=== PATIENT | male | born 1955 | race Caucasian/White ===

== ENCOUNTER 2016-05-17 11:34 | Inpatient (IN) | payer OTHER ==
[~2016-05-17] VITALS: Ht 180.3 cm; Wt 80.3 kg
[2016-05-28] MEDS ORDERED: VIAG25TA PO (15:25)
[2016-05-28] MEDS ORDERED: NAPR220T95 PO (15:25)
[2016-05-28] MEDS ORDERED: ALPR0.5T3 PO (15:25)
[2016-05-28] MEDS ORDERED: FENT25DI T-DERMAL (15:25)
[2016-05-28] MEDS ORDERED: TRAZ100T4 PO (15:25)
[2016-06-11] MEDS ORDERED: DEXAMETHASONE SOD PHOS 20 MG/5 ML VIAL ONE (05:54)
[2016-06-11] MEDS ORDERED: ceFAZolin 2 GM PREMIX 50 ML ONE (05:54)
[2016-06-11] MEDS ORDERED: SODIUM CHLOR 0.9% 250 ML INJ 250 ML ONE (05:55)
[2016-06-11] MEDS ORDERED: VANCOMYCIN HCL 1000 MG VIAL ONE (05:55)
[2016-06-11 05:57] VITALS: BP 150/85; PULSE 79; RESP 20; TEMP 97.8; O2SAT 97
[2016-06-11] MEDS ORDERED: LACTATED RINGER'S 1000 ML INJ 1,000 ML ONE (06:04)
[2016-06-11] MEDS ORDERED: GENTAMICIN SULFATE 80 MG/2 ML VIAL ONE (06:10)
[2016-06-11] MEDS ORDERED: FAMOTIDINE 20 MG/2 ML VIAL ONE (06:35)
[2016-06-11] MEDS ORDERED: MIDAZOLAM HCL 2 MG/2 ML VIAL ONE ×2 (06:36→09:35)
[2016-06-11] MEDS: CHLORHEXIDINE GLUCONATE 4% SOLN 120 ML BTL TOP SCH (06:45)
[2016-06-11] MEDS: POVIDONE IODINE 7.5% SCRUB 118 ML BOTTLE TOP SCH (06:45)
[2016-06-11] MEDS ORDERED: EXPAREL PERI-ARTICULAR INJECTION (TOTAL VOL. 60 ML) P-ARTICULR SCH ×2 (06:45)
[2016-06-11] MEDS ORDERED: SODIUM CHLORIDE 0.9% IV SCH (06:45)
[2016-06-11] MEDS ORDERED: TRANEXAMIC PERI-ARTICULAR 3,000 MG/NS 100 ML P-ARTICULR SCH ×2 (06:45)
[2016-06-11] MEDS ORDERED: ceFAZolin 2 GM PREMIX 50 ML IV SCH (06:45)
[2016-06-11] MEDS ORDERED: DEXAMETHASONE SOD PHOS 20 MG/5 ML VIAL IV ONE (06:45)
[2016-06-11] MEDS ORDERED: TRANEXAMIC ACID IV SCH (06:45)
[2016-06-11] MEDS ORDERED: VANCOMYCIN 1000 MG/NS 250 ML (for <70 kg) IV SCH ×2 (06:45)
[2016-06-11] MEDS ORDERED: ACETAMINOPHEN 1000 MG/100 ML VIAL IV ONE (06:48)
[2016-06-11] MEDS ORDERED: ALPRAZolam 0.5 MG TAB PO PRN (07:00)
[2016-06-11] MEDS ORDERED: HYDR-3288 PO (07:03)
[2016-06-11] MEDS ORDERED: ENOX40P SQ (07:04)
[2016-06-11] MEDS ORDERED: ASPI81CH37 CHEW (07:04)
[2016-06-11] MEDS ORDERED: BISACODYL 10 MG SUPP PR PRN (07:15)
[2016-06-11] MEDS ORDERED: ONDANSETRON HCL 4 MG/2 ML VIAL IVP PRN (07:15)
[2016-06-11] MEDS ORDERED: diphenhydrAMINE HCL 50 MG/ML VIAL IV PRN (07:15)
[2016-06-11] MEDS ORDERED: MORPHINE SULFATE 4 MG/ML INJ IV PUSH PRN (07:15)
[2016-06-11] MEDS ORDERED: ZOLPIDEM TARTRATE 5 MG TAB PO PRN (07:15)
[2016-06-11] MEDS ORDERED: NALOXONE HCL 0.4 MG/ML AMP IV PRN (07:15)
[2016-06-11] MEDS ORDERED: ALUMINUM/MAGNESIUM/SIMETH 30 ML CUP PO PRN (07:15)
[2016-06-11] MEDS ORDERED: SODIUM CHLORIDE 0.9% FLUSH 5 ML FLUSH IVF PRN (07:15)
[2016-06-11] MEDS ORDERED: INSULIN HUMAN REGULAR 1,000 UNITS/10 ML VIAL SQ PRN (08:30)
[2016-06-11] MEDS ORDERED: LACTATED RINGER'S 1000 ML IV SCH (08:30)
[2016-06-11] MEDS ORDERED: SODIUM CHLORID 0.9% 500 ML IV SCH (08:30)
[2016-06-11] MEDS ORDERED: METOPROLOL TARTRATE 25 MG TAB PO PRN (08:30)
[2016-06-11] MEDS: SODIUM CHLORIDE 0.9% FLUSH 5 ML FLUSH IVF SCH ×2 (09:00→21:39)
[2016-06-11] MEDS ORDERED: fentaNYL 25 MCG/HR PATCH T-DERMAL SCH (09:00)
[2016-06-11] MEDS ORDERED: Post-op Orders (for Pharmacy) MISC XX ONE (09:30)
[2016-06-11] MEDS ORDERED: DO NOT ADM ANY ANTICOAGULANT DRUGS XX PRN (09:30)
[2016-06-11] MEDS ORDERED: *morphine SULFATE 8 MG/ML PERIprocedure ONLY ONE ×2 (09:34→09:42)
[2016-06-11] MEDS ORDERED: fentaNYL CITRATE 250 MCG/5 ML AMP ONE (09:35)
[2016-06-11] MEDS ORDERED: MORPHINE SULFATE 4 MG/ML INJ ONE (09:36)
[2016-06-11] MEDS ORDERED: *MEPERIDINE 25 MG INJ VIAL PERIprocedural Use ONLY ONE (09:39)
[2016-06-11] MEDS ORDERED: *HYDROmorphone PF 1 MG VIAL PERIprocedural Use ONLY ONE ×3 (09:49→10:17)
[2016-06-11] MEDS ORDERED: *hydrOXYzine 25 MG VIAL PERIprocedural Use ONLY IM ONE (10:03)
[2016-06-11] MEDS: SODIUM CHLOR 0.9% 1000 ML INJ 1,000 ML IV SCH ×2 (10:20→15:53)
--- NOTE | 2016-06-11 11:15 | RADRPT ---
EXAM DATE/TIME: 06/11/2016 09:49 [facility] COMPARISON: No previous studies available for comparison. INDICATIONS : Post op. MEDICAL HISTORY : None. SURGICAL HISTORY : Right hip ENCOUNTER: Initial ACUITY: 1 day PAIN SCORE: 6/10 LOCATION: Right Hip FINDINGS: Examination of the right hip was performed with AP Pelvis. Postsurgical changes are noted following r ight hip replacement. Acetabular and femoral components are well seated and satisfactorily aligned. T here is no subacute fracture. Left hip is unremarkable. CONCLUSION: Satisfactory postoperative appearance of the right hip and pelvis status post hip replacement. Vincenzo Purcell MD on June 11, 2016 at 11:12 Board Certified Radiologist. This report was verified electronically.
[2016-06-11] MEDS: ACETAMINOPHEN/HYDROcodone 325 MG/10 MG TAB PO PRN ×3 (11:24→23:29)
[2016-06-11] MEDS: MAGNESIUM HYDROXIDE SUSP 30 ML CUP PO PRN (11:25)
[2016-06-11] MEDS ORDERED: PHENYLEPH/NS 1000 MCG/10 ML SYR IV ONE (12:39)
[2016-06-11] MEDS ORDERED: LACTATED RINGER'S 1000 ML INJ 1,000 ML IV ONE (12:39)
[2016-06-11] MEDS ORDERED: NEOSTIGMINE 3 MG/3 ML SYR IV ONE (12:39)
[2016-06-11] MEDS ORDERED: ONDANSETRON HCL 4 MG/2 ML VIAL IV PUSH ONE (12:39)
[2016-06-11] MEDS ORDERED: PROPOFOL 200 MG/20 ML AMP IV ONE (12:39)
[2016-06-11 12:50] VITALS: BP 130/71; PULSE 90; RESP 16; TEMP 97.2; O2SAT 91
--- NOTE | 2016-06-11 13:44 | RADRPT ---
EXAM DATE/TIME: 06/11/2016 07:30 [facility] COMPARISON: No previous studies available for comparison. INDICATIONS : Right anterior hip. MEDICAL HISTORY : Arthritis. SURGICAL HISTORY : None. ENCOUNTER: Subsequent ACUITY: 1 day PAIN SCORE: Non-responsive. LOCATION: Right hip FINDINGS: There is a right bipolar hip prosthesis. This appears well placed. CONCLUSION: Good placement of a bipolar right hip prosthesis. Jose Elizalde MD on June 11, 2016 at 13:41 Board Certified Radiologist. This report was verified electronically.
[2016-06-11 15:54] VITALS: BP 125/68; PULSE 101; RESP 18; TEMP 97.4; O2SAT 98
[2016-06-11] MEDS: VANCOMYCIN INJ 1,000 MG in SODIUM CHLOR 0.9% 250 ML INJ 250 ML IV SCH (17:55)
[2016-06-11 19:48] VITALS: O2SAT 95
[2016-06-11 20:00] VITALS: BP 108/60; PULSE 96; RESP 16; TEMP 98.9; O2SAT 95
[2016-06-11] MEDS ORDERED: traZODone HCL 50 MG TAB PO SCH (21:00)
[2016-06-12] VITALS: BP 132/73; PULSE 94; RESP 16; TEMP 98; O2SAT 98
[2016-06-12] MEDS: SODIUM CHLOR 0.9% 1000 ML INJ 1,000 ML IV SCH ×2 (03:01→08:01)
[2016-06-12 04:00] VITALS: BP 118/69; PULSE 87; RESP 16; TEMP 97.6; O2SAT 97
[2016-06-12] MEDS: CHLORHEXIDINE GLUCONATE 4% SOLN 120 ML BTL TOP SCH (04:54)
[2016-06-12] MEDS: POVIDONE IODINE 7.5% SCRUB 118 ML BOTTLE TOP SCH (04:54)
[2016-06-12] MEDS: ACETAMINOPHEN/HYDROcodone 325 MG/10 MG TAB PO PRN ×3 (05:12→12:45)
[2016-06-12] MEDS: VANCOMYCIN INJ 1,000 MG in SODIUM CHLOR 0.9% 250 ML INJ 250 ML IV SCH (05:13)
[2016-06-12 06:24] LABS: HEMATOCRIT 34.5 % (39.0-51.0); MEAN CELL VOLUME 87.6 FL (80.0-100.0); MEAN CORPUSCULAR HEMOGLOBIN 29.4 PG (27.0-34.0); MEAN CORPUSCULAR HGB CONC 33.6 % (32.0-36.0); PLATELET COUNT 227 TH/MM3 (150-450); RED BLOOD COUNT 3.94 MIL/MM3 (4.50-5.90); RED CELL DISTRIBUTION WIDTH 13.2 % (11.6-17.2); REVIEW FLAG FINAL; WHITE BLOOD COUNT 13.1 TH/MM3 (4.0-11.0)
[2016-06-12 06:51] LABS: BICARBONATE 29.4 MEQ/L (21.0-32.0); POTASSIUM 3.9 MEQ/L (3.5-5.1)
[2016-06-12] MEDS: SODIUM CHLORIDE 0.9% FLUSH 5 ML FLUSH IVF SCH (08:00)
[2016-06-12] MEDS: MAGNESIUM HYDROXIDE SUSP 30 ML CUP PO PRN (08:00)
--- NOTE | 2016-06-12 08:10 | PD.ORT.PN ---
Subjective Post Op Day #: 1 Subjective Remarks pain tolerable. Objective Vitals Vital Signs Date Time Temp Pulse Resp B/P Pulse Ox O2 Delivery O2 Flow Rate FiO2 06/12/16 04:00 97.6 87 16 118/69 97 06/12/16 00:00 98.0 94 16 132/73 98 06/11/16 20:00 98.9 96 16 108/60 95 06/11/16 19:48 95 21 06/11/16 15:54 97.4 101 18 125/68 98 06/11/16 12:50 97.2 90 16 130/71 91 06/11/16 10:15 83 12 162/79 96 Nasal Cannula 2 06/11/16 10:00 82 12 146/88 98 Nasal Cannula 2 06/11/16 09:45 70 12 133/84 99 Nasal Cannula 4 06/11/16 09:30 67 10 113/86 94 Nasal Cannula 4 06/11/16 09:20 98.3 85 14 140/76 94 Nasal Cannula 4 I/O 06/11/16 06/11/16 06/11/16 06/12/16 06/12/16 06/12/16 07:00 15:00 23:00 07:00 15:00 23:00 Intake Total 2280 ml 240 ml 240 ml Output Total 1725 ml 350 ml 700 ml Balance 555 ml -110 ml -460 ml Intake Oral 580 ml 240 ml 240 ml IV Total 200 ml Other 1500 ml Output Urine Total 1275 ml 350 ml 700 ml Estimated Blood Loss 450 ml # Voids 0 # Bowel Movements 0 0 0 Result Diagram: 06/12/16 0539 06/12/16 0539 Objective Remarks in chair, nad incision no erythema, no drainage thigh soft neg homans nvi Assessment & Plan Ortho Post Op Day #: 1 Problem List: Assessment and Plan s/p R JESSE anterior approach wbat daily dressing changes lovenox rx in chart d/c planning home with [facility] and pt cleared for d/c today if pain under control f/up dr. vaz 2 weeks Lex Ramirez Jun 12, 2016 08:10
--- NOTE | 2016-06-12 08:12 | HHI.DCPOC ---
Discharge Care Plan Diagnosis: (1) Primary localized osteoarthrosis, pelvic region and thigh Your Health Problems Are: Difficulty with ADL Goals to Promote Your Health * To prevent worsening of your condition and complications * To maintain your health at the optimal level Directions to Meet Your Goals Take your medications as prescribed Follow your dietary instruction Follow activity as directed Keep your appointments as scheduled Take your immunizations and boosters as scheduled If your symptoms worsen call your PCP, if no PCP go to Urgent Care Center or Emergency Room Smoking is Dangerous to Your Health. Avoid second hand smoke Call the 24-hour hour crisis hotline for domestic abuse at Lex Ramirez Jun 12, 2016 08:12
[2016-06-12] MEDS ORDERED: MISC-163 (08:13)
--- NOTE | 2016-06-12 08:13 | HHI.FF ---
Face to Face Verification Diagnosis: (1) Primary localized osteoarthrosis, pelvic region and thigh Physical Therapy Gait training, Safety evaluation, Transfer training, bed to chair Hip: Total hip, Protocol: Right Right LE Weight Bearing: WB as tolerated Nursing RN: 3 days/week x 2 weeks Nursing: Lissy teaching, Dressing changes I have seen patient Lyndon Solis on 06/12/16. My clinical findings support the need for the requested home health care services because: Limited ability to care for self High risk of falls I certify that my clinical findings support that this patient is homebound because: Post-op weakness Unsteady gait/balance Lex Ramirez Jun 12, 2016 08:13
[2016-06-12] MEDS ORDERED: ENOXAPARIN SODIUM 40 MG/0.4 ML SYRINGE SQ SCH (09:00)
[2016-06-12 09:44] VITALS: BP 108/72; PULSE 97; RESP 16; TEMP 97.8; O2SAT 100
[2016-06-12 09:55] VITALS: O2SAT 96
[2016-06-12 12:00] VITALS: BP 142/80; PULSE 92; RESP 16; TEMP 98.7; O2SAT 99
[2016-06-12] MEDS ORDERED: MULTIVITAMINS/MINERALS THERAPEUTIC TAB PO SCH (21:00)
[2016-06-12] MEDS ORDERED: DOCUSATE SODIUM 100 MG CAP PO SCH (21:00)
[2016-06-13] MEDS ORDERED: fentaNYL 25 MCG/HR PATCH T-DERMAL SCH (09:00)
--- NOTE | 2016-06-13 13:14 | MP ---
cc: ADALBERTO LOPEZ DATE OF SURGERY: 06/11/2016 PREOPERATIVE DIAGNOSIS Right hip osteoarthritis. POSTOPERATIVE DIAGNOSIS Right hip osteoarthritis. PROCEDURE Right total hip arthroplasty. SURGEON Dr. Adalberto Lopez DIRECT SUPPORT STAFF Adalberto Ramirez PA-C ANESTHESIA General. ESTIMATED BLOOD LOSS 200 cc. COMPLICATIONS None. IMPLANTS USED DePuy Corail size 13 Press-Fit standard offset femoral stem, size 56 solid [place] Gription cup, size 36 mm neutral highly crosslinked liner, size 36 mm ceramic head, +5 neck. JUSTIFICATION The patient is a 61-year-old male with a history of severe end-stage osteoarthritis involving the right hip. He has severe disabling pain with standing, walking, ambulation, weightbearing activities and even severe pain at rest. It does interfere with activities of daily living. The patient has failed greater than three months of nonoperative conservative treatment to include medications, physical therapy, ambulatory assisted aids, home exercise program and activity modification. The patient is not overweight. X-rays of the right hip reveal severe end-stage osteoarthritis, [id number] joint space narrowing, subchondral sclerosis, subchondral cysts, osteophyte formation and superior subluxation. The patient was counseled as to the risks, benefits and alternatives to a total hip arthroplasty. The risks which were discussed include but are not limited to anesthesia, bleeding, infection, damage to nerves, blood vessels, pain, stiffness, fracture-dislocation, leg length discrepancies, blood clots, pulmonary embolism, and even . The patient's pain is severe. He favored the benefits over the risks and did wish to proceed with surgery. PROCEDURE IN DETAIL Written consent was obtained. The patient was identified by name, taken to the operating room and placed supine on the operating table. General anesthesia was administered as well as 2 grams of IV Ancef and 1 gram of IV vancomycin. The right and left feet were placed in the padded traction boots. The right hip right and right lower extremity were prepped and draped using isopropyl alcohol, Hibiclens solution and ChloraPrep solution. After a timeout was performed a longitudinal incision was made over the anterolateral aspect of the right hip. The fascial layer was incised and dissection was carried over the tensor fascia anastasiya beneath the rectus femoris to allow exposure of the anterior hip capsule. A capsulotomy incision was performed. An oscillating saw was used to perform a femoral neck cut. The osteoarthritic femoral head and neck component was removed. A 10 blade scalpel was used to excise the labrum. Sequential reaming began at size 49 mm and was carried to a size 56 mm. Subsequently, a solid [place] Gription cup was implanted in approximately 45 degrees of abduction and 10 degrees of anteversion. There was good purchase and fixation after insertion of the cup. A screw hole eliminator was placed followed by the neutral liner which was impacted in place and tested for stability. Attention was turned to the femur where the leg was externally rotated, extended to the ground and adducted. The capsule was released off the undersurface the greater trochanter to allow for elevation and lateralization of the femur. A box cutting osteotome was used to gain entrance into the intramedullary canal of the femur. This was followed by a canal finder and sequential broaching up to size 13. A calcar planer was used to plane the calcar. Trial head and neck combinations were evaluated and the final component was implanted. With the current components implanted the leg could achieve 70 degrees of external rotation and extension all the way down to the ground without evidence of anterior instability or impingement. Soft tissue tension felt appropriate and fluoroscopic imaging showed appropriate implantation of components. The surgical wound was thoroughly irrigated with sterile saline pulse lavage antibiotic-impregnated solution. The fascial layer was closed with #1n Vicryl suture, subcutaneous layer with 2-0 Vicryl suture. The skin was closed with Dermabond. Sterile dressings were applied. The patient tolerated the procedure well. No intraoperative complications were noted. Adalberto Ramirez, physician aquatics assistant department head certified, was present during the entire procedure to include patient positioning and the procedure itself. The medical necessity of the physician aquatics assistant department head was indicated in this case due to the complexity of the procedure. He assisted with appropriate manipulation of the leg and also traction of muscle, tendon, bone and neurovascular structures. He assisted with both preparation of bone and implantation of the prosthetic replacement. MD NATANAEL Andrews/PEGGY /8:04 AM /11:47 AM
--- NOTE | 2016-06-18 12:05 | MD ---
cc: ADALBERTO LOPEZ ADMISSION DATE: 06/11/2016 DISCHARGE DATE: 06/12/2016 ADMISSION DIAGNOSIS Severe degenerative osteoarthritis right hip. DISCHARGE DIAGNOSIS Severe degenerative osteoarthritis right hip. HISTORY OF PRESENT ILLNESS Mr. Solis is a 61-year-old male who presented to the [facility] for evaluation by Dr. Adalberto Lopez regarding his progressive right hip pain. The patient states the pain in his right hip has been bothering him for greater than 6 months for which he has been treated for this ailment. He states currently it is a severe, constant aching sensation aggravated by weightbearing activities. He notes the pain is inhibiting his activities of daily living and inhibiting his ability to exercise. He notes in the past he has tried medications, physical therapy home exercise program. The patient is not overweight as well as a steroid injection without relief of symptoms. He does have x-ray evidence of severe degenerative osteoarthritis in the right hip. While in the office the patient was counseled on his diagnosis and treatment options. The risks, benefits and indications all were discussed. The patient did elect to proceed with surgical intervention to include a right total hip arthroplasty. DATE OF SURGERY 06/11/2016. OPERATIVE PROCEDURE Right total hip arthroplasty anterior approach. POSTOP After surgery the patient was admitted to [facility] where he received appropriate medical management, pain control, DVT prophylaxis as well as physical therapy. DISCHARGE Once being discharged from the hospital, the patient is cleared to go home where he will receive home health care and home physical therapy. CONDITION ON DISCHARGE He is in stable condition. DISPOSITION The patient may weight-bear as tolerated with anterior hip precautions. He is to receive daily dressing changes and has been instructed on proper wound care management. DISCHARGE MEDICATIONS The patient has been provided prescriptions for DVT prophylaxis as well as pain medication. FOLLOWUP He has also been provided a follow-up appointment to see Dr. Adalberto Lopez in the office in approximately 2 two weeks from his date of surgery. The patient and the patient's have asked appropriate questions which have been answered. The patient has been discharged. Dictated by: Chemo Ramirez PA-C MD NATANAEL Andrews/NEMESIO /7:51 AM /12:06 PM
== END 2016-06-12 16:25 | disposition home health service (06) | DRG 470 ==
LOC: HSDI 06-11 05:15 → N06A 06-11 10:47
PROVIDERS: ADMIT Orthopaedic Surgery Sports Medicine; ATTEND Orthopaedic Surgery Sports Medicine
PROC: 0SR903A Replacement of Right Hip Joint with Ceramic Synthetic Substitute, Uncemented, Open Approach (ICD-10-PCS; principal; 2016-06-11 06:49)
DX: M16.11 Unilateral primary osteoarthritis, right hip (principal); M54.30 Sciatica, unspecified side; M25.751 Osteophyte, right hip; Z86.19 Personal history of other infectious and parasitic diseases; Z87.891 Personal history of nicotine dependence; Z88.0 Allergy status to penicillin
CPT/HCPCS: 73502; 76000; 80048; 85027; 86850; 86900; 86901; 94150; C1776; C9290; J0131; J0690; J1100; J1170; J1580; J1650; J2175; J2250; J2270; J2370; J2405; J2710; J3010; J3370; J3410; J7030; J7050; J7120

== ENCOUNTER → 2016-05-28 | Outpatient (CLI) | payer OTHER ==
[~2016-05-28] MED LIST: ALPR0.5T3 PO; ASPI81CH37 CHEW; ENOX40P SQ; FENT100D T-DERMAL; FENT25DI T-DERMAL; HYDR-3288 PO; MISC-163; NAPR220T95 PO; OXYC5 PO; TRAZ100T4 PO; TRAZ50TA4 PO; VIAG25TA PO
[2016-05-28 15:30] LABS: AUTOMATED NEUTROPHIL # 5.6 TH/MM3 (1.8-7.7); BASOPHIL # 0.1 TH/MM3 (0-0.2); EOSINOPHIL # 0.1 TH/MM3 (0-0.4); EOSINOPHIL % 1.8 % (0.0-4.0); HEMATOCRIT 42.9 % (39.0-51.0); HEMO FLAGS DIFF FINAL; LYMPH % 19.2 % (9.0-44.0); LYMPHOCYTE # 1.5 TH/MM3 (1.0-4.8); MEAN CELL VOLUME 88.1 FL (80.0-100.0); MEAN CORPUSCULAR HEMOGLOBIN 29.3 PG (27.0-34.0); MEAN CORPUSCULAR HGB CONC 33.3 % (32.0-36.0); MONO % 8.8 % (0.0-8.0); NEUT % 69.2 % (16.0-70.0); PLATELET COUNT 220 TH/MM3 (150-450); RED BLOOD COUNT 4.87 MIL/MM3 (4.50-5.90); RED CELL DISTRIBUTION WIDTH 13.7 % (11.6-17.2); WHITE BLOOD COUNT 8.1 TH/MM3 (4.0-11.0)
[2016-05-28 15:38] LABS: BLOOD, URINE NEG (NEG); COMMENT (UR) CULT NOT INDICATED; CULTURE IF INDICATED CULT NOT INDICATED; GLUCOSE,URINE NEG (NEG); KETONE, URINE NEG (NEG); MUCUS URINE FEW /lpf (OCC); NITRITE,URINE NEG (NEG); PH, URINE 6.5 (5.0-8.5); SQUAMOUS EPITHELIAL CELL URINE <1 /hpf (0-5); URINE COLOR YELLOW (YELLW/STRAW)
[2016-05-28 15:42] LABS: APTT (PATIENT) 27.1 SEC (24.3-30.1); PROTHROMBIN TIME - PATIENT 11.4 SEC (9.8-11.6)
[2016-05-28 15:57] LABS: ANION GAP 7 MEQ/L (5-15); AST (GOT) 16 U/L (15-37); BICARBONATE 31.9 MEQ/L (21.0-32.0); BLOOD UREA NITROGEN 20 MG/DL (7-18); CHLORIDE 101 MEQ/L (98-107); GLOMERULAR FILTRATION RATE 81 ML/MIN (>89); GLUCOSE,FASTING 102 MG/DL (74-99); SODIUM (NA) 140 MEQ/L (136-145)
[2016-05-28 16:01] LABS: ALKALINE PHOSPHATASE 76 U/L (45-117); ALT (GPT) 25 U/L (12-78); TOTAL BILIRUBIN ADULT 0.8 MG/DL (0.2-1.0); WESTERGREN SEDIMENTATION RATE 1 mm/hr (0-20)
--- NOTE | 2016-05-28 16:23 | RADRPT ---
EXAM DATE/TIME: 05/28/2016 15:48 [facility] COMPARISON: No previous studies available for comparison. INDICATIONS : Evaluate for pneumonia, pneumothorax, or communicable disease. Pre op for hip replacement. MEDICAL HISTORY : None. SURGICAL HISTORY : None. ENCOUNTER: Initial ACUITY: 1 day PAIN SCORE: 0/10 LOCATION: Bilateral chest FINDINGS: PA and lateral views of the chest demonstrate the lungs to be symmetrically aerated without evidence of mass, infiltrate or effusion. The cardiomediastinal contours are unremarkable. Osseous structure s are intact. CONCLUSION: No acute disease. Daljit Gleason MD on May 28, 2016 at 16:21 Board Certified Radiologist. This report was verified electronically.
--- NOTE | 2016-05-29 14:36 | EKG ---
Date Performed: 05/28/2016 Time Performed: 15:16:30 PTAGE: 61 years EKG: Sinus rhythm NORMAL ECG NO PREVIOUS TRACING DOCTOR: Aleksey Bradford Interpretating Date/Time 05/29/2016 14:34:16
== END ==
LOC: CPRE 14:41
PROVIDERS: ATTEND Orthopaedic Surgery Sports Medicine
DX: Z01.810 Encounter for preprocedural cardiovascular examination (principal); Z01.811 Encounter for preprocedural respiratory examination; Z01.812 Encounter for preprocedural laboratory examination; Z01.818 Encounter for other preprocedural examination; M16.11 Unilateral primary osteoarthritis, right hip; M25.50 Pain in unspecified joint; Z96.60 Presence of unspecified orthopedic joint implant; Z79.01 Long term (current) use of anticoagulants
CPT/HCPCS: 36415; 71020; 80053; 81001; 85025; 85610; 85652; 85730; 93005